=== PATIENT | female | born 1980 | race Caucasian/White ===

== ENCOUNTER → 2021-03-17 07:44 | Outpatient (CLI) | payer OTHER, SELFPAY ==
--- NOTE | 2021-03-17 07:50 | DI.US.S_ITS ---
PROCEDURE: US OB <= 14 WEEKS FETUS INDICATIONS: DATING OUTSIDE/PRIOR DATING DATA: Last menstrual period (LMP): 01/17/2021. LMP-based estimated date of delivery (YONG): 10/24/2021. First dating scan (date and location): 03/20/2021. Estimated date of delivery (YONG) from first dating scan: 10/12/2021. TECHNIQUE: Real-time scanning was performed of the fetus and maternal pelvic organs, with image documentation. Endovaginal scanning was also performed to better visualize the fetus and maternal ovaries. COMPARISON: None. FINDINGS: Embryo: Hustler-rump length 3.2 cm corresponding with a 10 week 1 day gestation. Small perigestational bleed measures 1.1 x 0.8 by 0.6 cm. Heart rate: 173 Measurement variability in dating: +/- 4 weeks by LMP, +/- 7 days by mean sac diameter (use before 6 weeks gestation if crown-rump length not able to be measured), +/- 5 days by crown-rump length (up to 8 weeks 6 days gestation), +/- 7 days by crown-rump length (up to 13 weeks 6 days gestation). Maternal organs: Right ovary within normal limits. Left ovary not visualized. IMPRESSION: 1. Single live intrauterine corresponds with a 10 week 1 day gestation. 2. Small perigestational bleed 1.1 x 0.6 cm. Dictated by: Benton Macias M.D. on 03/17/2021 at 12:55 Approved by: Benton Macias M.D. on 03/17/2021 at 13:00
== END ==
PROVIDERS: Referring Provider Obstetrics & Gynecology; Visit Provider Obstetrics & Gynecology
DX: Z34.01 Encounter for supervision of normal first pregnancy, first trimester (principal); Z3A.10 10 weeks gestation of pregnancy
CPT/HCPCS: 76801; 76817

== ENCOUNTER → 2021-04-17 08:45 | Outpatient (CLI) | payer OTHER, SELFPAY ==
[2021-04-17 19:59] LABS: HIV 1 & 2 Ab/Ag 4th Gen Combo NEGATIVE (NEGATIVE)
[2021-04-18 09:12] LABS: Varicella IgG Antibody 977 index (Immune >165)
== END ==
PROVIDERS: Referring Provider Obstetrics & Gynecology; Visit Provider Obstetrics & Gynecology
DX: O09.529 Supervision of elderly multigravida, unspecified trimester; Z13.79 Encounter for other screening for genetic and chromosomal anomalies
CPT/HCPCS: 36415; 81420; 86787; 87389

== ENCOUNTER → 2021-05-15 09:12 | Outpatient (CLI) | payer OTHER, SELFPAY ==
[2021-05-15 13:09] LABS: GTT (PREG) 1 Hour PP 50gm Dose 95 mg/dL (76-139)
[2021-05-17 21:23] LABS: AFP Value 38.8 ng/mL (.); Gest Age on Col Date 18.3 weeks (.); Insulin Dep Diabetes No (.); OSBR Risk 1IN 5748 (.); Results Report (.); Test Results *Screen Negative* (.)
== END ==
PROVIDERS: Referring Provider Obstetrics & Gynecology; Visit Provider Obstetrics & Gynecology
DX: Z34.82 Encounter for supervision of other normal pregnancy, second trimester (principal); Z3A.18 18 weeks gestation of pregnancy
CPT/HCPCS: 36415; 82105; 82950

== ENCOUNTER → 2021-06-11 12:10 | Outpatient (CLI) | payer OTHER, SELFPAY ==
--- NOTE | 2021-06-11 12:11 | DI.US.S_ITS ---
PROCEDURE: US OB >= 14 WEEKS FETUS INDICATIONS: ANATOMY OUTSIDE/PRIOR DATING DATA: Last menstrual period (LMP): 01/17/2021 LMP-based estimated date of delivery (YONG): 10/24/2021. First dating scan (date and location): 03/17/2021. Estimated date of delivery (YONG) from first dating scan: 10/12/2021. The calculations are made using the ultrasound YONG of 10/12/2021. TECHNIQUE: Real-time scanning was performed of the fetus, with image documentation and biometric measurements. COMPARISON: [facility], , OB <= 14 WEEKS FETUS, 03/17/2021, 8:14. FINDINGS: General: A single living intrauterine gestation is present. Presentation: Vertex. Placenta: Placental position is posterior , without previa. Amniotic fluid index: 13.7 cm, normal range is 5-24 cm. heart rate: 144 beats per minute. Maternal cervical canal: 5.5 cm long. Normal lower limit is 2.5 cm. biometrics: Biparietal diameter: 21 weeks 3 days Head circumference: 21 weeks 5 days Abdominal circumference: 22 weeks 1 day Femur length: 21 weeks 5 days Clinically estimated gestational age: 22 weeks 3 days Composite gestational age from present scan: 21 weeks 5 days Estimated weight and percentile: 462 g, 21st percentile Anatomic survey: Neuro: Ventricles are non-dilated at less than 10 mm. Cisterna magna is normal at 3-11 mm. Cerebellum is normal in size and morphology. Nuchal skin fold: Normal at less than 6 mm between 14-21 weeks gestational age. . Face: Nose and lips, facial profile are normal. Spine: No evidence for spina bifida. Heart: 4-chambered heart is present, with normal ventricular outflow tracts. Diaphragm: Diaphragm is intact. Stomach: Left-sided stomach is present. Kidneys: No hydronephrosis. Normal is less than 5 mm in 2nd trimester, less than 7 mm in 3rd trimester. Cord: 3-vessel cord has orthotopic insertion. Bladder: Normal in size. Extremities: All 4 extremities identified. IMPRESSION: 1. Single living IUP redemonstrated and interval growth is normal. 2. face suboptimally visualized; otherwise normal anatomy. Follow-up recommended We strive to produce accurate, complete, and clear reports of imaging services. To assist us in improving patient care, this report was composed using standard report templates and voice recognition software. Therefore, it may contain abnormal punctuation, insertions and/or omissions. Occasional wrong-word or sound-alike substitutions may occur. Though we review the report and make efforts to correct it, we do recommend that the report be read carefully in proper context to recognize any text inaccuracies. Dictated by: Fermin GUSMAN Interpreted: Jeff Breaux MD on 06/11/2021 at 15:22 Transcribed by: NAI on 06/11/2021 at 15:24 Approved by: Jeff Breaux M.D. on 06/11/2021 at 16:51
== END ==
PROVIDERS: Referring Provider Obstetrics & Gynecology; Visit Provider Obstetrics & Gynecology
DX: Z36.89 Encounter for other specified antenatal screening (principal); O09.522 Supervision of elderly multigravida, second trimester; Z3A.21 21 weeks gestation of pregnancy
CPT/HCPCS: 76811

== ENCOUNTER → 2021-07-03 12:39 | Outpatient (CLI) | payer OTHER, SELFPAY ==
--- NOTE | 2021-07-03 13:21 | DI.US.S_ITS ---
PROCEDURE: US OB FOLLOW UP INDICATIONS: RE-EVALUATE FACE OUTSIDE/PRIOR DATING DATA: Last menstrual period (LMP): 01/17/2021 LMP-based estimated date of delivery (YONG): 10/24/2021. First dating scan (date and location): 03/17/2021 Estimated date of delivery (YONG) from first dating scan: 10/12/2021. The calculations are made using the ultrasound YONG of 10/12/2021. TECHNIQUE: Real-time scanning was performed of the fetus, with image documentation and biometric measurements. COMPARISON: [facility], US, US OB >= 14 WEEKS FETUS, 06/11/2021, 12:24. FINDINGS: General: A single living intrauterine gestation is present. Presentation: Vertex. Placenta: Placental position is anterior , without previa. Amniotic fluid index: 15.7 cm, normal range is 5-24 cm. heart rate: 145 beats per minute. Maternal cervical canal: 5.3 cm long. Normal lower limit is 2.5 cm. IMPRESSION: Single living IUP redemonstrated and today's exam demonstrating normal appearance of the nose, lips and profile. We strive to produce accurate, complete, and clear reports of imaging services. To assist us in improving patient care, this report was composed using standard report templates and voice recognition software. Therefore, it may contain abnormal punctuation, insertions and/or omissions. Occasional wrong-word or sound-alike substitutions may occur. Though we review the report and make efforts to correct it, we do recommend that the report be read carefully in proper context to recognize any text inaccuracies. Dictated by: Fermin GUSMAN Interpreted: Cris Rowell MD on 07/03/2021 at 14:24 Transcribed by: [email or web address] on 07/03/2021 at 14:26 Approved by: Cris Rowell M.D. on 07/03/2021 at 17:35
== END ==
PROVIDERS: Referring Provider Obstetrics & Gynecology; Visit Provider Obstetrics & Gynecology
DX: Z36.2 Encounter for other antenatal screening follow-up (principal); Z3A.22 22 weeks gestation of pregnancy
CPT/HCPCS: 76816

== ENCOUNTER → 2021-07-11 16:50 | Outpatient (CLI) | payer OTHER, SELFPAY ==
[2021-07-11 18:39] LABS: Hematocrit 33.8 % (36-46); Hemoglobin 11.5 g/dL (12.0-16.0)
[2021-07-11 19:10] LABS: GTT (PREG) 1 Hour PP 50gm Dose 107 mg/dL (76-139)
== END ==
PROVIDERS: Referring Provider Obstetrics & Gynecology; Visit Provider Obstetrics & Gynecology
DX: Z34.82 Encounter for supervision of other normal pregnancy, second trimester (principal); Z3A.26 26 weeks gestation of pregnancy; E66.01 Morbid (severe) obesity due to excess calories; Z68.41 Body mass index [BMI] 40.0-44.9, adult
CPT/HCPCS: 36415; 82950; 85014; 85018

== ENCOUNTER 2021-09-06 12:16 | Outpatient (CLI) | payer OTHER, SELFPAY ==
--- NOTE | 2021-09-06 13:21 | PM.OBTRLD ---
Visit Information Visit Information Date of evaluation: 09/06/21 Primary OB Provider: Joni Patrick On-call OB Provider: Gabbi Piper Reason for Evaluation: Yes non-stress test Vital Signs Vital Signs: T 36.2 BP 132/76 P 62 PFSH Medical History (Updated 09/05/21 @ 17:06 by Joni Patrick MD) Advanced maternal age (AMA), 40 years or greater AMA (advanced maternal age) primigravida 35+ Ankle fracture, left Depression Gastric ulcer Infertility Obesity PCOS (polycystic ovarian syndrome) SAB (spontaneous ) SAB (spontaneous ) Surgical History (Updated 03/18/21 @ 15:30 by Mercedes Marinelli, RN) History of colonoscopy History of esophagogastroduodenoscopy (EGD) Family History (Updated 03/18/21 @ 15:18 by Mercedes Marinelli, RN) Father Diabetes mellitus Asthma Myocardial infarction Mother Skin cancer Thyroid nodule H/O partial thyroidectomy Grandfather H/O heart bypass surgery Grandmother Rheumatoid arthritis Cancer Breast cancer Grandfather No problems noted. Grandmother Cancer Lung cancer Heavy smoker Family/Other Cancer Breast cancer Brother Asthma Sister Asthma Sister Asthma Social History marital status: number of children: 0 household members: spouse lives independently: Yes caregiver/support person: No housing: apartment pets and animals: Yes (Cat : but lives in [place] with Yash currently. 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[employer]) current occupational exposures/hazards: No special giorgio needs: No Smoking Status: Never smoker Evaluation Evaluation Baseline heart rate: 130 Variability: Moderate (11-25) monitor accelerations: Present Monitor Decelerations: Absent Category of Tracing: Reactive Diagnosis, Plan/Disposition Final Diagnosis (1) Advanced maternal age (AMA), 40 years or greater: Status: Acute (2) Gestational hypertension without significant proteinuria during in third trimester, antepartum: Status: Acute Plan/Disposition Plan: 40 year old at 34+4 weeks with gestational HTN and AMA here for scheduled NST. BP well-controlled, NST reactive. Follow up in clinic as scheduled or return to center if needed. OB Disposition: home
== END 2021-09-06 13:20 | disposition home or self-care (01) ==
LOC: OB 09-09 06:46
PROVIDERS: Referring Provider Obstetrics & Gynecology; Visit Provider Obstetrics & Gynecology
DX: O13.3 Gestational [pregnancy-induced] hypertension without significant proteinuria, third trimester (principal); O09.523 Supervision of elderly multigravida, third trimester; Z3A.34 34 weeks gestation of pregnancy
CPT/HCPCS: 59025; G0378; G0379

== ENCOUNTER → 2021-09-12 17:23 | Outpatient (CLI) | payer OTHER, SELFPAY | PROVIDERS: Visit Provider Obstetrics & Gynecology | DX: R30.0 Dysuria (principal); R35.89 Other polyuria; Z34.83 Encounter for supervision of other normal pregnancy, third trimester | CPT/HCPCS: 87086 ==

== ENCOUNTER 2021-09-12 18:06 | Outpatient (CLI) | payer OTHER, SELFPAY ==
--- NOTE | 2021-09-12 18:20 | P.TNLD_ITS ---
Visit Information Visit Information Date of evaluation: 09/12/21 Primary OB Provider: Lindsey Muller On-call OB Provider: Joni Patrick Reason for Evaluation: Yes non-stress test Comments/Additional reasons for admission: 41yo P0 @34 weeks for scheduled NST for AMA. On labetalol for HTN BID. Vital Signs Vital Signs: 127/80, VSS PFSH Medical History Advanced maternal age (AMA), 40 years or greater AMA (advanced maternal age) primigravida 35+ Ankle fracture, left Depression Gastric ulcer Infertility Obesity PCOS (polycystic ovarian syndrome) SAB (spontaneous ) SAB (spontaneous ) Surgical History History of colonoscopy History of esophagogastroduodenoscopy (EGD) Family History Father Diabetes mellitus Asthma Myocardial infarction Mother Skin cancer Thyroid nodule H/O partial thyroidectomy Grandfather H/O heart bypass surgery Grandmother Rheumatoid arthritis Cancer Breast cancer Grandfather No problems noted. Grandmother Cancer Lung cancer Heavy smoker Family/Other Cancer Breast cancer Brother Asthma Sister Asthma Sister Asthma Social History marital status: number of children: 0 household members: spouse lives independently: Yes caregiver/support person: No housing: apartment pets and animals: Yes (Cat : but lives in [place] with Yash currently. 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 OB Disposition: home
== END 2021-09-12 18:35 | disposition home or self-care (01) ==
LOC: OB 09-16 07:28
PROVIDERS: Referring Provider Obstetrics & Gynecology; Visit Provider Obstetrics & Gynecology
DX: O13.3 Gestational [pregnancy-induced] hypertension without significant proteinuria, third trimester (principal); O09.523 Supervision of elderly multigravida, third trimester; Z3A.35 35 weeks gestation of pregnancy; R30.0 Dysuria; R35.89 Other polyuria; Z34.83 Encounter for supervision of other normal pregnancy, third trimester
CPT/HCPCS: 59025; 87086; G0378; G0379

== ENCOUNTER 2021-09-19 15:49 | Outpatient (CLI) | payer OTHER, SELFPAY | END 2021-09-19 17:11 | disposition home or self-care (01) | LOC: LABOR 16:01 → OB 09-21 12:38 | PROVIDERS: Referring Provider Obstetrics & Gynecology; Visit Provider Obstetrics & Gynecology | DX: O13.3 Gestational [pregnancy-induced] hypertension without significant proteinuria, third trimester (principal); O09.523 Supervision of elderly multigravida, third trimester; Z3A.36 36 weeks gestation of pregnancy | CPT/HCPCS: 59025; 87653; G0378; G0379 ==

== ENCOUNTER → 2021-09-19 17:23 | Outpatient (CLI) | payer OTHER, SELFPAY ==
[2021-09-20 13:40] LABS: Strep Grp B PCR NEG for Grp B Strep
== END ==
PROVIDERS: PCP Obstetrics & Gynecology; Visit Provider Obstetrics & Gynecology
DX: Z36.85 Encounter for antenatal screening for Streptococcus B (principal); Z3A.36 36 weeks gestation of pregnancy
CPT/HCPCS: 87653